=== PATIENT | female | born 1995 | race Caucasian/White ===

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

== ENCOUNTER 2017-06-25 18:44 | Emergency (ER) | payer MEDICAID ==
[~2017-06-25] VITALS: Ht 157.5 cm; Wt 77.1 kg
[2017-06-25 19:32] VITALS: BP_SYST 131
--- NOTE | 2017-06-25 20:30 | NUR ---
Patient to ER bed 08 to gown for evaluation. Side rails up. Report given to JEREMIAS VILLAFANA
--- NOTE | 2017-06-25 20:34 | NUR ---
pt in bed 8 with c/o dizzines and H/A, vss. orthostatic v/s stable. Dr Linares aware.
[2017-06-25] MEDS ORDERED: NACL 0.9% 1,000 ML IV ONE (20:43)
[2017-06-25] MEDS ORDERED: MECLIZINE HCL 25 MG TABLET (ANITVERT) PO ONE (20:45)
--- NOTE | 2017-06-25 20:50 | NUR ---
ER at bedside examining patient.
[2017-06-25 21:15] LABS: BILIRUBIN,URINE NEGATIVE (NEGATIVE); BLOOD, URINE NEGATIVE (NEGATIVE); CLARITY/URINE CLEAR (CLEAR); COLOR,URINE YELLOW (YELLOW); GLUCOSE,URINE NEGATIVE (NEGATIVE); KETONES,URINE NEGATIVE (NEGATIVE); LEUKOCYTE ESTERASE ,URINE NEGATIVE (NEGATIVE); NITRITE, URINE NEGATIVE (NEGATIVE); PH,URINE 6.5 (5.0-8.0); PROTEIN URINE NEGATIVE (NEGATIVE); UROBILINOGEN,URINE 0.2 (0.2-1.0)
--- NOTE | 2017-06-25 21:20 | NUR ---
# 20 gauge angiocath placed to RAC. Use of asceptic technique. Opsite placed over site. Blood return noted. Blood for lab drawn from site. Flushed with 10 cc of normal saline. No evidence of infiltration noted. Patient tolerated well.
[2017-06-25 21:27] LABS: BASOPHILS # (AUTO) 0.1 K/uL (0.0-0.2); BASOPHILS % (AUTO) 0.8 % (0.0-2.0); EOSINOPHILS # (AUTO) 0.1 K/uL (0.0-0.4); EOSINOPHILS % (AUTO) 1.7 % (0.0-4.0); HEMATOCRIT 37.6 % (36-48); HEMOGLOBIN 12.8 g/dL (12.0-16.0); LYMPHOCYTES # (AUTO) 3.1 K/uL (1.0-5.5); LYMPHOCYTES % (AUTO) 41.1 % (20.5-51.5); MEAN CORPUSCULAR HEMOGLOBIN 30 pg (27-31); MEAN CORPUSCULAR HGB CONC 34 % (32-36); MEAN CORPUSCULAR VOLUME 87 fL (79.0-98.0); MONOCYTES # (AUTO) 0.6 K/uL (0.0-1.0); MONOCYTES % (AUTO) 7.6 % (1.7-9.3); NEUTROPHILS # (AUTO) 3.6 K/uL (1.8-7.7); NEUTROPHILS % (AUTO) 48.8 % (40.0-70.0); PLATELET COUNT (AUTO) 230 K/uL (130-430); RED CELL DISTRIBUTION WIDTH 11.8 % (9.0-15.0); WHITE BLOOD COUNT (AUTO) 7.4 K/uL (4.5-11.0)
[2017-06-25 21:47] LABS: CALCIUM 9.4 mg/dL (8.4-11.0); CREATININE 0.46 mg/dL (0.55-1.30); POTASSIUM 3.9 mmol/L (3.5-5.1)
[2017-06-25 21:51] LABS: TOTAL BILIRUBIN 0.3 mg/dL (0.0-1.0)
[2017-06-25 22:20] VITALS: BP_SYST 121
--- NOTE | 2017-06-25 22:21 | NUR ---
Patient given written and verbal discharge instructions and verbalizes understanding. ER MD discussed with patient the results and treatment provided. Patient in stable condition. ID arm band removed. IV catheter removed intact and dressing applied, no active bleeding. Rx of ANTIVERT given. Patient educated on pain management and to follow up with PMD. Pain Scale 0/10. Opportunity for questions provided and answered.
== END 2017-06-25 22:20 | disposition home or self-care (01) ==
LOC: SED 18:44
DX: R42 Dizziness and giddiness (principal)
CPT/HCPCS: 36415; 80053; 81003; 85025; 96360; 99284; J7030; J8597

== ENCOUNTER 2017-10-12 14:00 | Emergency (ER) | payer MEDICAID ==
[~2017-10-12] VITALS: Ht 157.5 cm; Wt 86.2 kg
[2017-10-12 14:05] VITALS: BP_SYST 154
[2017-10-12 15:34] LABS: BILIRUBIN,URINE NEGATIVE (NEGATIVE); BLOOD, URINE 3+ (NEGATIVE); COLOR,URINE YELLOW (YELLOW); GLUCOSE,URINE NEGATIVE (NEGATIVE); KETONES,URINE NEGATIVE (NEGATIVE); LEUKOCYTE ESTERASE ,URINE TRACE (NEGATIVE); NITRITE, URINE NEGATIVE (NEGATIVE); PH,URINE 5.5 (5.0-8.0); PROTEIN URINE 1+ (NEGATIVE); UROBILINOGEN,URINE 0.2 (0.2-1.0)
[2017-10-12 15:42] LABS: BASOPHILS % (AUTO) 0.3 % (0.0-2.0); EOSINOPHILS # (AUTO) 0.1 K/uL (0.0-0.4); EOSINOPHILS % (AUTO) 1.1 % (0.0-4.0); HEMATOCRIT 40.6 % (36-48); HEMOGLOBIN 13.4 g/dL (12.0-16.0); LYMPHOCYTES # (AUTO) 1.9 K/uL (1.0-5.5); LYMPHOCYTES % (AUTO) 18.1 % (20.5-51.5); MEAN CORPUSCULAR HEMOGLOBIN 29 pg (27-31); MEAN CORPUSCULAR HGB CONC 33 % (32-36); MEAN CORPUSCULAR VOLUME 87 fL (79.0-98.0); MONOCYTES # (AUTO) 0.6 K/uL (0.0-1.0); MONOCYTES % (AUTO) 5.5 % (1.7-9.3); PLATELET COUNT (AUTO) 214 K/uL (130-430); RED BLOOD CELL COUNT(AUTO) 4.69 MIL/uL (4.2-6.2); RED CELL DISTRIBUTION WIDTH 12.4 % (9.0-15.0); WHITE BLOOD COUNT (AUTO) 10.6 K/uL (4.5-11.0)
[2017-10-12 15:45] LABS: CLARITY/URINE HAZY (CLEAR)
[2017-10-12 15:46] LABS: BACTERIA,URINE FEW /HPF (None Seen); RBC,URINE 50-80 /HPF (0-3)
[2017-10-12 15:47] LABS: MUCUS,URINE None Seen /LPF (None Seen)
[2017-10-12 15:48] LABS: CALCIUM 9.4 mg/dL (8.4-11.0); CREATININE 0.41 mg/dL (0.55-1.30); POTASSIUM 3.9 mmol/L (3.5-5.1)
[2017-10-12 15:51] LABS: PROTHROMBIN TIME 9.9 SECS (9.5-12.5)
[2017-10-12 15:52] LABS: ALBUMIN 3.9 g/dL (3.4-4.8); TOTAL BILIRUBIN 0.3 mg/dL (0.0-1.0)
[2017-10-12 16:25] VITALS: BP_SYST 115
[2017-10-12] MEDS ORDERED: ONDANSETRON 4 MG ODT TAB PO ONE (16:30)
[2017-10-12] MEDS ORDERED: IBUPROFEN 800 MG TABLET PO ONE (16:30)
== END 2017-10-12 16:25 | disposition home or self-care (01) ==
LOC: SED 14:00
DX: R10.30 Lower abdominal pain, unspecified (principal); R11.2 Nausea with vomiting, unspecified; R19.7 Diarrhea, unspecified
CPT/HCPCS: 36415; 80053; 81000-TC; 81025; 82150-TC; 83690-TC; 84703; 85025; 85610-TC; 85730-TC; 99285

== ENCOUNTER 2020-10-05 09:11 | Emergency (ER) | payer MEDICAID ==
[~2020-10-05] VITALS: Ht 160 cm; Wt 90.7 kg
[2020-10-05 09:26] VITALS: BP_SYST 117
--- NOTE | 2020-10-05 09:26 | NUR ---
Patient to ER bed 7 to gown for evaluation. Side rails up. Report given to JEREMIAS Jacobo.
--- NOTE | 2020-10-05 09:30 | NUR ---
Pt came to ER for chest pain since this morning, rates pain 7/10 midsternal. Pt appears calm and comfortable, with no other complaints, VSS, awaiting MD.
--- NOTE | 2020-10-05 09:40 | NUR ---
ER at bedside examining patient.
[2020-10-05] MEDS ORDERED: KETOROLAC TROMETHAMINE 60 MG/2 ML VIAL IM ONE (09:45)
--- NOTE | 2020-10-05 09:56 | NUR ---
Patient ambulated to radiology, accompanied by emissions technician.
--- NOTE | 2020-10-05 09:58 | NUR ---
Returned from radiology, back to [facility].
[2020-10-05] MEDS ORDERED: NAPR-688 PO (10:38)
[2020-10-05 10:55] VITALS: BP_SYST 117
--- NOTE | 2020-10-05 10:56 | NUR ---
Patient given written and verbal discharge instructions and verbalizes understanding. ER MD discussed with patient the results and treatment provided. Patient in stable condition. ID arm band removed. Rx of Naproxen given. Patient educated on pain management and to follow up with PMD. Pain Scale 0/10. Opportunity for questions provided and answered. Medication side effect fact sheet provided.
== END 2020-10-05 10:55 | disposition home or self-care (01) ==
LOC: SED 09:11
DX: R07.89 Other chest pain (principal); E07.9 Disorder of thyroid, unspecified; F41.9 Anxiety disorder, unspecified
CPT/HCPCS: 71045; 81025; 96372; 93005; 99283; J1885

== ENCOUNTER 2021-01-03 19:52 | Emergency (ER) | payer MEDICAID ==
[~2021-01-03] VITALS: Ht 157.5 cm; Wt 88.5 kg
[~2021-01-03 19:52] MED LIST: NAPR-688 PO
[2021-01-03 19:56] VITALS: BP_SYST 123
--- NOTE | 2021-01-03 20:00 | NUR ---
Patient to ER bed 2 to gown for evaluation. Side rails up. Report given to JEREMIAS Martin.
--- NOTE | 2021-01-03 20:05 | NUR ---
Pt BIB family to ED C/O multiple symptoms related to having her wisdom teeth pulled, pt's wondering "how come the oral antibx prescribd by dentist hasn't kicked in / making her feel better " VSS no s/s of acute distress Resting on gurney rails up
--- NOTE | 2021-01-03 20:08 | NUR ---
Dr. De Jesus bedside for pt eval
--- NOTE | 2021-01-03 20:21 | NUR ---
Patient moved to [facility].
--- NOTE | 2021-01-03 20:33 | NUR ---
Pt switched to Hallway bed position, well tolerated
[2021-01-03 20:56] VITALS: BP_SYST 123
== END 2021-01-03 20:55 | disposition left against medical advice (07) ==
LOC: SED 19:52
DX: R42 Dizziness and giddiness (principal); Z53.21 Procedure and treatment not carried out due to patient leaving prior to being seen by health care provider

== ENCOUNTER 2021-01-05 10:20 | Emergency (ER) | payer MEDICAID ==
[~2021-01-05] VITALS: Ht 170.2 cm; Wt 86.2 kg
[2021-01-05 10:35] VITALS: BP_SYST 123
[2021-01-05] MEDS ORDERED: KETOROLAC TROMETHAMINE 30 MG VIAL IVP ONE (11:45)
[2021-01-05] MEDS ORDERED: NACL 0.9% 1,000 ML IV ONE (11:45)
[2021-01-05] MEDS ORDERED: IBUP-1970 PO ×2 (13:36)
[2021-01-05 13:48] VITALS: BP_SYST 123
== END 2021-01-05 13:49 | disposition home or self-care (01) ==
LOC: SED 10:20
DX: K08.89 Other specified disorders of teeth and supporting structures (principal); E03.9 Hypothyroidism, unspecified
CPT/HCPCS: 96361; 96374; 99283; J1885; J7030

== ENCOUNTER 2021-01-24 17:37 | Emergency (ER) | payer MEDICAID ==
[~2021-01-24] VITALS: Ht 165.1 cm; Wt 86.2 kg
[2021-01-24 17:37] VITALS: BP_SYST 129
[~2021-01-24 17:37] MED LIST changes: +IBUP-1970 PO; -NAPR-688 PO
[2021-01-24] MEDS ORDERED: ONDANSETRON HCL 4 MG/2 ML VIAL IVP ONE (18:30)
[2021-01-24] MEDS ORDERED: KETOROLAC TROMETHAMINE 30 MG VIAL IVP ONE (18:30)
[2021-01-24] MEDS ORDERED: NACL 0.9% 1,000 ML IV ONE (18:30)
[2021-01-24 18:53] LABS: BASOPHILS # (AUTO) 0.1 K/uL (0.0-0.2); BASOPHILS % (AUTO) 0.6 % (0.0-2.0); EOSINOPHILS # (AUTO) 0.1 K/uL (0.0-0.4); EOSINOPHILS % (AUTO) 0.9 % (0.0-4.0); HEMATOCRIT 40.3 % (36-48); HEMOGLOBIN 13.3 g/dL (12.0-16.0); LYMPHOCYTES # (AUTO) 1.5 K/uL (1.0-5.5); LYMPHOCYTES % (AUTO) 12.3 % (20.5-51.5); MEAN CORPUSCULAR HEMOGLOBIN 29 pg (27-31); MEAN CORPUSCULAR HGB CONC 33 % (32-36); MEAN CORPUSCULAR VOLUME 88 fL (79.0-98.0); MONOCYTES # (AUTO) 0.7 K/uL (0.0-1.0); MONOCYTES % (AUTO) 5.8 % (1.7-9.3); NEUTROPHILS # (AUTO) 9.6 K/uL (1.8-7.7); NEUTROPHILS % (AUTO) 80.4 % (40.0-70.0); PLATELET COUNT (AUTO) 220 K/uL (130-430); RED BLOOD CELL COUNT(AUTO) 4.58 MIL/uL (4.2-6.2); RED CELL DISTRIBUTION WIDTH 13.2 % (9.0-15.0)
[2021-01-24 19:04] LABS: CALCIUM 9.2 mg/dL (8.4-11.0); CREATININE 0.62 mg/dL (0.55-1.30)
[2021-01-24 19:09] LABS: ALBUMIN 3.7 g/dL (3.4-4.8); TOTAL BILIRUBIN 0.5 mg/dL (0.0-1.0)
[2021-01-24 20:48] LABS: BILIRUBIN,URINE NEGATIVE (NEGATIVE); COLOR,URINE YELLOW (YELLOW); GLUCOSE,URINE NEGATIVE (NEGATIVE); KETONES,URINE NEGATIVE (NEGATIVE); LEUKOCYTE ESTERASE ,URINE 2+ (NEGATIVE); NITRITE, URINE NEGATIVE (NEGATIVE); PH,URINE 7.5 (5.0-8.0); PROTEIN URINE NEGATIVE (NEGATIVE); UROBILINOGEN,URINE 0.2 (0.2-1.0)
[2021-01-24 20:53] LABS: BLOOD, URINE TRACE (NEGATIVE); CLARITY/URINE HAZY (CLEAR)
[2021-01-24] MEDS ORDERED: CEPH500C2 PO (21:04)
[2021-01-24] MEDS ORDERED: ONDA-8 TL (21:04)
[2021-01-24 21:20] VITALS: BP_SYST 129
[2021-01-24 21:25] LABS: BACTERIA,URINE FEW /HPF (None Seen); MUCUS,URINE None Seen /LPF (None Seen); RBC,URINE 0-3 /HPF (0-3)
== END 2021-01-24 21:20 | disposition home or self-care (01) ==
LOC: SED 17:37
DX: N39.0 Urinary tract infection, site not specified (principal); E03.9 Hypothyroidism, unspecified; F41.9 Anxiety disorder, unspecified; Z79.899 Other long term (current) drug therapy
CPT/HCPCS: 36415; 80053; 81000; 81025; 83690; 84484; 85025; 87086; 96361; 96374; 96375; 99284; J1885; J2405; J7030

== ENCOUNTER 2021-01-26 02:45 | Emergency (ER) | payer MEDICAID ==
[~2021-01-26] VITALS: Ht 157.5 cm; Wt 88.5 kg
[~2021-01-26 02:45] MED LIST changes: +CEPH500C2 PO; +ONDA-8 TL
[2021-01-26 02:55] VITALS: BP_SYST 142
[2021-01-26] MEDS ORDERED: FLOEARD RIGHT EAR (03:44)
[2021-01-26] MEDS: KETOROLAC TROMETHAMINE 60 MG/2 ML VIAL IM ONE (03:57)
[2021-01-26 03:58] VITALS: BP_SYST 122
== END 2021-01-26 03:58 | disposition home or self-care (01) ==
LOC: SED 02:45
DX: H60.91 Unspecified otitis externa, right ear (principal); E03.9 Hypothyroidism, unspecified; F41.9 Anxiety disorder, unspecified; Z79.899 Other long term (current) drug therapy
CPT/HCPCS: 96372; 99283; J1885

== ENCOUNTER 2021-02-07 16:27 | Emergency (ER) | payer MEDICAID ==
[~2021-02-07] VITALS: Ht 160 cm; Wt 81.6 kg
[~2021-02-07 16:27] MED LIST changes: +FLOEARD RIGHT EAR
[2021-02-07 16:31] VITALS: BP_SYST 140
[2021-02-07 18:07] VITALS: BP_SYST 140
== END 2021-02-07 18:08 | disposition left against medical advice (07) ==
LOC: SED 16:27
DX: K91.840 Postprocedural hemorrhage of a digestive system organ or structure following a digestive system procedure (principal); Z98.890 Other specified postprocedural states; Z79.899 Other long term (current) drug therapy
CPT/HCPCS: 99283

== ENCOUNTER 2021-10-01 02:56 | Emergency (ER) | payer MEDICAID ==
[~2021-10-01 02:56] MED LIST changes: +CEPH-548 PO; -CEPH500C2 PO
--- NOTE | 2021-10-01 03:30 | NUR ---
Per pharmacy stock clerk, pt LWBS.
== END 2021-10-01 03:30 | disposition left against medical advice (07) ==
LOC: SED 02:56
DX: Z53.21 Procedure and treatment not carried out due to patient leaving prior to being seen by health care provider (principal)

== ENCOUNTER 2024-03-27 17:18 | Emergency (ER) | payer MEDICAID ==
[~2024-03-27] VITALS: Ht 157.5 cm; Wt 70.3 kg
[2024-03-27 17:41] VITALS: BP_SYST 132; PULSE 90; RESP 16; TEMP 97; O2SAT 99
[2024-03-27] MEDS: NACL 0.9% 1,000 ML IV ONE (18:54)
[2024-03-27 19:00] LABS: HEMOGLOBIN 11.5 g/dL (12.0-16.0); WHITE BLOOD COUNT (AUTO) 13.6 K/uL (4.8-10.8)
[2024-03-27] MEDS: METOCLOPRAMIDE HCL 10 MG/2 ML VIAL IVP ONE (19:02)
[2024-03-27] MEDS: KETOROLAC TROMETHAMINE 15 MG VIAL IVP ONE (19:02)
[2024-03-27] MEDS: DIPHENHYDRAMINE INJ 50 MG/ML VIAL IVP ONE (19:02)
[2024-03-27] MEDS: ONDANSETRON HCL 4 MG/2 ML VIAL IVP ONE (19:03)
[2024-03-27 19:10] LABS: BASOPHILS % (AUTO) 0.2 % (0.0-2.0); HEMATOCRIT 33.9 % (36-48); LYMPHOCYTES # (AUTO) 0.7 K/uL (1.0-5.5); LYMPHOCYTES % (AUTO) 4.9 % (20.5-51.5); MEAN CORPUSCULAR HEMOGLOBIN 28 pg (27-31); MEAN CORPUSCULAR HGB CONC 34 % (32-36); MEAN CORPUSCULAR VOLUME 81 fL (79.0-98.0); MONOCYTES # (AUTO) 0.4 K/uL (0.0-1.0); MONOCYTES % (AUTO) 3.1 % (1.7-9.3); NEUTROPHILS # (AUTO) 12.4 K/uL (1.8-7.7); NEUTROPHILS % (AUTO) 91.8 % (40.0-70.0); PLATELET COUNT (AUTO) 178 K/uL (130-430); RED BLOOD CELL COUNT(AUTO) 4.17 MIL/uL (4.2-6.2); RED CELL DISTRIBUTION WIDTH 18.1 % (9.0-15.0)
[2024-03-27 19:20] LABS: ALBUMIN 3.7 g/dL (3.4-4.8); BILIRUBIN,DIRECT 0.1 mg/dL (0.0-0.3); CALCIUM 8.7 mg/dL (8.4-11.0); CREATININE 0.53 mg/dL (0.55-1.30); POTASSIUM 3.8 mmol/L (3.5-5.1); TOTAL BILIRUBIN 0.4 mg/dL (0.0-1.0); TOTAL PROTEIN, SERUM 6.9 g/dL (6.4-8.3)
[2024-03-27] MEDS ORDERED: ONDA-8 TL (20:09)
[2024-03-27 20:21] VITALS: BP_SYST 126; PULSE 90; RESP 18; TEMP 98.9; O2SAT 99
== END 2024-03-27 20:21 | disposition home or self-care (01) ==
LOC: SED 17:18
DX: R11.2 Nausea with vomiting, unspecified (principal); T88.59XA Other complications of anesthesia, initial encounter; E03.9 Hypothyroidism, unspecified; F41.9 Anxiety disorder, unspecified; Z98.890 Other specified postprocedural states; Z79.899 Other long term (current) drug therapy; Z79.2 Long term (current) use of antibiotics; Y83.8 Other surgical procedures as the cause of abnormal reaction of the patient, or of later complication, without mention of misadventure at the time of the procedure; Y92.89 Other specified places as the place of occurrence of the external cause
CPT/HCPCS: 99284; 96374; 96375; 96361; 80076; 80048; 85025; 36415; J1200; J1885; J2765; J2405; J7030